=== PATIENT | male | born 1955 | race Caucasian/White ===

== ENCOUNTER → 2018-01-02 06:47 | Outpatient (CLI) | payer OTHER, SELFPAY ==
[2018-01-02 08:38] LABS: Absolute Lymphocyte Count 1.15 X10^3/ul (0.83-4.51); Basophil# 0.02 X10^3/uL; Basophil% 0.4 % (0-1); Eosinophil# 0.23 X10^3/uL; Eosinophils% 4.6 % (0-5); Hematocrit 48.5 % (40-54); Hemoglobin 16.5 g/dl (13.0-16.5); Lymphocyte # 1.15 X10^3/ul (4.0); Mean Corpuscular Hgb 32.7 pg (27.0-32.0); Mean Platelet Vol. 11.5 fl (6.2-12.0); Monocyte# 0.59 X10^3/uL; Monocyte% 11.8 % (0-10); Neutrophil # 2.98 X10^3/uL (2.7-7.7); Neutrophil % 59.4 % (47-70); POSITIVE COUNT NO; POSITIVE DIFFERENTIAL NO; POSITIVE MORPHOLOGY NO; Platelet Count 139 K/mm3 (150-450); RBC Distribution Width CV 12.6 % (11.6-14.6); RBC Distribution Width SD 43.8 fl (35.1-43.9); Red Blood Count 5.05 M/mm3 (4.6-6.2)
[2018-01-02 09:27] LABS: ALB/GLOB Ratio 1.1 RATIO (0.9-2.4); AST(SGOT) 22 U/L (15-37); Alanine Aminotransfer ALT/SGPT 33 U/L (16-61); Albumin, Serum 3.8 g/dL (3.2-5.0); Alkaline Phosphatase 89 U/L (45-117); Anion Gap 8 (5-15); BUN 25 mg/dL (7-18); BUN/Creat Ratio 22.7 RATIO (10-20); Calcium,Total 8.2 mg/dL (8.5-10.1); Chloride 106 mmol/L (98-107); Cholesterol 223 mg/dL (200); EST Glomerular Filtration Rate 72 mL/min (>60); Est Glom Filt Rate - Afr Amer 87 mL/min (>60); Globulin 3.4 g/dL (2.2-4.2); Glucose 77 mg/dL (74-106); High Density Lipoprotein 63 mg/dL; PSA,Total - Annual Screen 3.32 ng/mL (0.00-4.00); Potassium 3.6 mmol/L (3.5-5.1); Protein, Total 7.2 g/dL (6.4-8.2); Sodium Level 141 mmol/L (136-145); T4 Free Direct 1.12 ng/dL (0.76-1.46); Thyroid Stim Hormone (TSH) 1.71 uIU/mL (0.358-3.74); Triglycerides 62 mg/dL; Very Low Density Lipoprotein 12 mg/dL (5-40)
== END ==
PROVIDERS: Family Provider Family Medicine; PCP Family Medicine; Visit Provider Family Medicine
DX: Z00.00 Encounter for general adult medical examination without abnormal findings (principal); Z12.5 Encounter for screening for malignant neoplasm of prostate; I10 Essential (primary) hypertension; E03.9 Hypothyroidism, unspecified
CPT/HCPCS: 36415; 80053; 80061; 84153; 84439; 84443; 85025; G0103

== ENCOUNTER → 2018-01-14 15:57 | Outpatient (CLI) | payer OTHER, SELFPAY ==
--- NOTE | 2018-01-14 16:01 | US_ITS ---
STUDY: THYROID ULTRASOUND REASON FOR EXAM: Male, 62 years old. Right thyroid nodule. Patient with thyroid medication. TECHNIQUE: Ultrasound evaluation of the thyroid was performed with real-time and static whelan-scale imaging. COMPARISON: None. FINDINGS: RIGHT LOBE: The right lobe of the thyroid gland measures 4.4 x 1.1 x 0.8 cm. There is a homogeneous echotexture. There are no demonstrated solid, cystic or complex lesions. LEFT LOBE: The left lobe of the thyroid gland measures 3.0 x 1.2 x 0.9 cm. There is a homogeneous echotexture. There are no demonstrated solid, cystic or complex lesions. ISTHMUS: The isthmus measures 2 mm . The regional lymph nodes are normal. US/Thyroid IMPRESSION: Mildly enlarged right lobe of the thyroid gland. No nodule identified. Electronically Signed: Santiago Ayala MD at 0:29 EDT , Service support ,
== END ==
PROVIDERS: Family Provider Family Medicine; PCP Family Medicine; Visit Provider Family Medicine
DX: E04.1 Nontoxic single thyroid nodule (principal)
CPT/HCPCS: 76536

== ENCOUNTER → 2019-04-15 06:48 | Outpatient (CLI) | payer MEDICARE, SELFPAY ==
[2013-11-09 09:39] VITALS: BMI 21.6
[2019-04-15 07:40] LABS: Absolute Neutrophil Count 3.8 X10^3/uL (2.0-7.7); Basophil# 0.05 X10^3/uL; Basophil% 0.9 % (0-1); Eosinophil# 0.14 X10^3/uL; Eosinophils% 2.5 % (0-5); Hemoglobin 16.4 g/dL (13.0-16.5); Lymphocyte % 17.7 % (19-41); Mean Corp Hgb Conc 34.2 g/dL (32-36); Mean Corpuscular Hgb 32.9 pg (27.0-32.0); Mean Corpuscular Volume 96.4 fL (80-94); Monocyte# 0.66 X10^3/uL; Monocyte% 11.7 % (0-10); NRBC Flagged by Analyzer 0 % (0-5); Neutrophil # 3.75 X10^3/uL (2.7-7.7); Neutrophil % 66.5 % (47-70); Platelet Count 139 K/mm3 (150-450); RBC Distribution Width SD 42.1 fl (35.1-43.9); Red Blood Count 4.98 M/mm3 (4.6-6.2); White Blood Count 5.6 K/mm3 (4.4-11.0)
[2019-04-15 08:15] LABS: ALB/GLOB Ratio 1.1 RATIO (0.9-2.4); AST(SGOT) 22 U/L (15-37); Alanine Aminotransfer ALT/SGPT 33 U/L (16-61); Albumin, Serum 3.7 g/dL (3.2-5.0); Alkaline Phosphatase 84 U/L (45-117); Anion Gap 5 (5-15); BUN 17 mg/dL (7-18); BUN/Creat Ratio 14.9 RATIO (10-20); Calcium,Total 8.4 mg/dL (8.5-10.1); Chloride 108 mmol/L (98-107); Cholesterol 216 mg/dL (200); Creatinine, Serum 1.14 mg/dL (0.70-1.30); EST Glomerular Filtration Rate 68 mL/min (>60); Est Glom Filt Rate - Afr Amer 83 mL/min (>60); Globulin 3.3 g/dL (2.2-4.2); Glucose 85 mg/dL (74-106); High Density Lipoprotein 64 mg/dL; PSA,Total - Annual Screen 4.52 ng/mL (0.00-4.00); Potassium 3.9 mmol/L (3.5-5.1); Sodium Level 142 mmol/L (136-145); T4 Free Direct 1.21 ng/dL (0.76-1.46); Thyroid Stim Hormone (TSH) 2.12 uIU/mL (0.358-3.74); Triglycerides 63 mg/dL; Very Low Density Lipoprotein 13 mg/dL (5-40)
== END ==
PROVIDERS: Family Provider Family Medicine; PCP Family Medicine; Referring Provider Family Medicine; Visit Provider Family Medicine
DX: Z00.00 Encounter for general adult medical examination without abnormal findings (principal); Z12.5 Encounter for screening for malignant neoplasm of prostate; I10 Essential (primary) hypertension; Z51.81 Encounter for therapeutic drug level monitoring
CPT/HCPCS: 36415; 80053; 80061; 84153; 84439; 84443; 85025; G0103

== ENCOUNTER → 2019-11-11 08:24 | Outpatient (CLI) | payer MEDICARE, MEDICAID, SELFPAY ==
[2013-11-09 09:39] VITALS: BMI 21.6
[2019-11-11 09:49] LABS: PSA,Total- Diagnostic 3.38 ng/mL (0.0-4.0)
== END ==
PROVIDERS: Family Provider Family Medicine; PCP Family Medicine; Referring Provider Family Medicine; Visit Provider Family Medicine
DX: R97.20 Elevated prostate specific antigen [PSA] (principal)
CPT/HCPCS: 36415; 84153

== ENCOUNTER 2021-09-05 12:54 | Outpatient (CLI) | payer MEDICARE, MEDICAID, SELFPAY ==
[2021-09-05 13:17] VITALS: BP 163/103; PULSE 102; RESP 20; TEMP 38.8; O2SAT 96; BMI 24.7
[2021-09-05] MEDS: 0.9% Saline Lock 10 ML Syringe IV (13:23)
[2021-09-05] MEDS: Acetaminophen 325 MG Tablet 650 MG PO (13:23)
[2021-09-05 13:54] VITALS: BP 130/89; PULSE 89; RESP 16; TEMP 37.6; O2SAT 96
[2021-09-05 14:52] VITALS: BP 129/86; PULSE 80; RESP 16; TEMP 37.4; O2SAT 97
== END 2021-09-05 23:59 | disposition home or self-care (01) ==
LOC: MS3OUT 12:55 → MS3 12:55
PROVIDERS: PCP Family Medicine; Referring Provider Nurse Practitioner Adult Health; Visit Provider Nurse Practitioner Adult Health
DX: Z23 Encounter for immunization (principal); U07.1 COVID-19
CPT/HCPCS: J7050; M0245; Q0245; A4216

== ENCOUNTER 2021-10-27 16:21 | Inpatient (IN) | payer MEDICARE, MEDICAID, SELFPAY ==
[2021-10-27] VITALS (18 sets, daily range): BP systolic 118–158; BP diastolic 71–89; PULSE 51–83; RESP 12–19; TEMP 35.9–36.8; O2SAT 96–100; BMI 26.3; BMI 25.6
--- NOTE | 2021-10-27 16:37 | CT_ITS ---
STUDY: CT BRAIN WITHOUT CONTRAST REASON FOR EXAM: Male, 66 years old. Head trauma and loc RADIATION DOSAGE (If Supplied By Facility): CTDIvol = ( 44.99 ) mGy, DLP = ( 829.85 ) mGycm TECHNIQUE: Transaxial CT imaging of the brain was performed without administration of intravenous contrast material. Individualized dose optimization techniques were used for this CT. COMPARISON: 01/13/2012 FINDINGS: Normal soft tissue structures. Normal calvarium. Normal size ventricles and extra-axial spaces for the patient''s age. Normal white matter tracts of the cerebral hemispheres. Normal basal ganglia and thalami. Normal brainstem. Normal cerebellum. There is no intracranial hemorrhage. There are no findings of an acute ischemic infarction. Normal visualized paranasal sinuses. CT/Brain/Head without Contrast IMPRESSION: Normal unenhanced CT scan of the brain. Electronically Signed: Cosmo Rose DO at 17:52 EST ,
--- NOTE | 2021-10-27 16:37 | EKG12_ITS ---
Test Reason : SYNCOPE Blood Pressure : / mmHG Vent. Rate : 050 BPM Atrial Rate : 050 BPM P-R Int : 158 ms QRS Dur : 112 ms QT Int : 452 ms P-R-T Axes : 067 051 051 degrees QTc Int : 412 ms Sinus bradycardia Otherwise normal ECG Confirmed by RA YOUNG, SHEN ([id number]), video news editor KARTHIK LINDSEY ([id number]) on 10/29/2021 10:44:43 AM Referred By: DEACON/SANG Confirmed By:SHEN KNAPP MD
--- NOTE | 2021-10-27 16:39 | EX.ED.DYSGE1 ---
HPI History of Present Illness Chief Complaint: Syncope Informant: patient Onset/Context/Timing Onset: Today Context: Sudden Onset Timing: Intermittent Current Severity: Mild Maximum Severity: Moderate Narrative Narrative: 66-year-old male history of hypothyroidism and hypertension. No cardiac history. Patient was at home today was feeling well he walked in the bedroom and passed out. says urine hit the floor 1 in and she noticed he was not breathing a bit his tongue. She still no seizure activity. He was able to wake him up he started breathing. She said he has had episodes like this before but not this severe this long. After he was awake and alert she said he was confused. His heart rate was around 49 when they checked it. And he had a second very brief syncopal episode while sitting there. No chest pain. No headache. When he fell he did hit his head is complaining contusion of back of his head. Denies any neck pain. No other injuries. He has had syncope years ago in extensive work-up at that time they could not find anything. Prior similar symptoms: Yes Recent Illness/Hospitalization: No PFSH PFS Medical History Hypertension Hypothyroidism Syncope and collapse Home Medications levothyroxine 75 mcg PO DAILY 11/09/13 [History Last Taken Unknown] lisinopril 5 mg PO DAILY 11/09/13 [History Last Taken Unknown] Allergy/AdvReac Type Severity Reaction Status Date / Time Penicillins Allergy Severe Rash Verified 09/05/21 10:59 Sulfa (Sulfonamide Allergy Rash Verified 09/05/21 10:59 Antibiotics) Social History Smoking Status: Never smoker ROS ROS ED ROS Narrative Denies recent illness. Review of Systems ROS Unobtainable: Denies due to encephalopathy Constitutional Constitutional ED: Denies fever(s) Eyes Eyes: Denies change in vision ENT ENT ED: Denies ear pain Cardiovascular Cardiovascular: Denies chest pain Respiratory/Chest Respiratory/Chest: Denies dyspnea Gastrointestinal Gastrointestinal: Denies abdominal pain or nausea Genitourinary Genitourinary ED: Denies dysuria Musculoskeletal Musculoskeletal: Denies myalgias Integumentary Denies rash Neurologic Neurologic: Denies headache(s) Psychiatric Psychiatric: Denies depression Endocrine Endocrinology: Denies polyuria Allergic/Immunologic Allergic/Immunologic ED: Denies mouth swelling, tongue swelling or urticaria EXAM Physical Exam Narrative Exam Narrative: 66-year-old male no acute distress. Vital signs stable pressure 158/81 with heart rate 51. Looks like a sinus bradycardia on the monitor. Pulse is 9 9% on room air no signs hypoxia. H EENT exam is a small quarter size contusion posterior scalp. No laceration or blood. Pupils round reactive light. He also has a small bruise bite deniz on front right tip of his tongue. No bleeding. No laceration. C-spine nontender. Trachea midline. Lungs clear to auscultation. Heart bradycardic rate of 55 no murmur. Chest wall nontender. Ribs nontender. Abdomen soft nontender. Back and spine nontender. Moving all 4 extremities. Equal symmetrical police communications operator strength. Dorsi plantarflexion intact. Neurologically is awake. He is alert. He is answering questions. He follows commands. He has no focal motor deficits. He is little confused after being post ictal. He cannot name the day of the week or the month. He does know the year and president. Const Vital Signs: 10/27/21 16:23 10/27/21 16:28 10/27/21 16:30 Temperature 96.7 F L 96.7 F L Temperature Source Temporal Temporal Pulse Rate 51 L 51 L Respiratory Rate 16 16 Respiratory Pattern Normal Blood Pressure 158/81 H 158/81 H Blood Pressure Mean 106 106 Pulse Ox 99 99 Oxygen Delivery Method Room Air Room Air 10/27/21 16:43 Temperature Temperature Source Pulse Rate Respiratory Rate Respiratory Pattern Blood Pressure Blood Pressure Mean Pulse Ox Oxygen Delivery Method Room Air Positive well nourished and well developed; Negative for obese, cachectic, contractures or unkempt General Appearance ED: well developed and NAD; Negative for unkempt, cachectic, contractures, cyanotic, diaphoretic or pallor Nutritional Appearance: Negative for cachectic or obese HEENT Reports moist mucous membranes HEENT Narrative: Small bite deniz right front anterior tongue. trauma and tenderness Eyes PERRL and EOMs intact bilaterally Neck no lymphadenopathy, supple and no JVD General: Negative for tenderness Chest Wall inspection of chest normal and palpation of chest normal Resp normal respiratory effort and clear to auscultation bilaterally Effort and Inspection: Negative for pain with movement Auscultation: Negative for rales, rhonchi or wheezes Cardio regular rhythm, S1 normal heart sound, S2 normal heart sound and no murmurs; Negative for regular rate Rate: bradycardia GI normal to inspection, nondistended, normoactive bowel sounds, non-tender, non-distended and no masses Inspection: Negative for abdominal distention Auscultation: normoactive bowel sounds Palpation: soft; Negative for tender, guarding or rebound tenderness present Back/Spine no CVA tenderness General Back: Negative for CVA tenderness Cervical Spine: Negative for cervical spine tenderness Thoracic Spine / Upper Back: Negative for thoracic spinal tenderness or paraspinal muscle tenderness Lumbar Spine / Lower Back: Negative for lumbar spinal tenderness Extremity normal to inspection General Extremety ED: Negative for edema or tenderness General Extremity: Negative for edema Neuro oriented x3 and CN's II-XII intact bilaterally Sensorium / Orientation: alert; Negative for orientation impaired, lethargic or stuporous Motor Exam: strength 5/5 throughout Psych mental status grossly normal Appearance: Negative for unkempt Attitude: No agitated Mood & Affect: Negative for depressed, anxious or tearful Skin no rashes or lesions noted and no wounds General Skin Exam: Negative for jaundice or pallor MDM MDM MDM Narrative Medical decision making narrative: 66-year-old male with a syncopal episode. He does have a sinus bradycardia at this time. He is confused after the event. There is a possibility this was a seizure since he is confused postevent. I was called to the room around 5:10 by his nurse.. Patient had an unresponsive episode he became bradycardic in the 20s and then had asystole for very brief period of time. As I did a sternal rub he started regaining his heart rate and woke up. Lab Data Attestation: I reviewed the patient's lab results. Lab results narrative: CBC shows a white count 13.6. H&H is 16 and 46. Platelets of 158. Electrolytes unremarkable gap of 5 BUN of 19 creatinine 1.1. Glucose 168. Troponin V. Chest x-ray unremarkable. Labs: Laboratory Results - last 24 hr 10/27/21 10/27/21 16:38 16:38 WBC 13.6 H RBC 4.78 Hgb 16.3 Hct 46.3 MCV 96.9 H MCH 34.1 H MCHC 35.2 RDW Std Deviation 44.1 H RDW Coeff of Pia 12.3 Plt Count 158 MPV 10.5 Immature Gran % (Auto) 1.000 H Neut % (Auto) 90.8 H Lymph % (Auto) 3.7 L [place] % (Auto) 4.0 Eos % (Auto) 0.1 Baso % (Auto) 0.4 Absolute Neuts (auto) 12.4 H Absolute Lymphs (auto) 0.51 L Nucleated RBC % 0 Platelet Estimate ADEQUATE RBC Morphology NORM C+C Sodium 139 Potassium 4.3 Chloride 105 Carbon Dioxide 29.0 Anion Gap 5 BUN 19 H Creatinine 1.19 Estim Creat Clear Calc 59.41 Est GFR (MDRD) Af Amer 78 Est GFR (MDRD) Non-Af 65 BUN/Creatinine Ratio 16.0 Glucose 168 H Calcium 9.0 Troponin I High Sens 5 Radiography Chest X-Ray - ED: 1 View, 2 View, Read by ED Physician, Heart, Lungs, Mediastinum, Bony Structures, No Acute Disease and Chronic Changes Diagnostic Testing: Clinical Impression(s) from Imaging Studies Chest X-Ray 10/27/21 16:40 IMPRESSION: Normal x-ray examination of the chest. Electronically Signed: Cosmo Rose DO at 17:06 EST Reading Location ID and State: [address] [place] [address] Tel [phone], Service support , Chest x-ray, portable, single view interpreted myself and radiologist shows no acute abnormality. Rhythm Strip Rhythm Strip: Sinus bradycardia Rate: 50 Ectopy: None EKG Initial EKG: Attestation: I personally reviewed and interpreted this EKG as follows: Interpretation: No Acute Injury Pattern and Sinus Bradycardia Comments: Sinus bradycardia rate of 50 no acute signs of [place] nor ischemia. Unchanged from prior EKG from 2013. Prior EKG tracings: available for review Prior: Unchanged Discharge Plan Triage Chief Complaint: Syncope ED Provider: Arsh Tripathi Dx/Rx/DC Orders Clinical Impression: Syncope and collapse, Bradycardia, sinus, Asystole Prescriptions: No Action levothyroxine 75 MCG tablet 75 mcg PO DAILY RF: 0 lisinopril 10 MG tablet 5 mg PO DAILY RF: 0 Primary Care Provider: Deniz Fatima Referrals: Deniz Fatima DO [Primary Care Provider] -
--- NOTE | 2021-10-27 16:40 | RAD_ITS ---
STUDY: X-RAY CHEST REASON FOR EXAM: Male, 66 years old. Chest pain TECHNIQUE: Frontal view COMPARISON: 01/14/2012. FINDINGS: The lungs are clear and expanded. There is no demonstrated pleural abnormality. Normal size heart. Normal mediastinum and teo. Normal visualized pulmonary arteries. Normal visualized aortic arch and descending thoracic aorta. Normal visualized thoracic spine. Normal visualized ribs, clavicles, and shoulders. There is no demonstrated abnormality of the visualized soft tissue structures of the upper abdomen. RAD/Chest 1 View (Portable) IMPRESSION: Normal x-ray examination of the chest. Electronically Signed: Cosmo Rose DO at 17:06 EST ,
[2021-10-27 16:52] LABS: Absolute Lymphocyte Count 0.51 X10^3/uL (0.83-4.51); Absolute Neutrophil Count 12.4 X10^3/uL (2.0-7.7); Basophil# 0.06 X10^3/uL; Basophil% 0.4 % (0-1); Eosinophil# 0.01 X10^3/uL; Eosinophils% 0.1 % (0-5); Hematocrit 46.3 % (40-54); Hemoglobin 16.3 g/dL (13.0-16.5); Lymphocyte # 0.51 X10^3/ul (0.83-4.51); Lymphocyte % 3.7 % (19-41); Mean Corp Hgb Conc 35.2 g/dL (32-36); Mean Corpuscular Hgb 34.1 pg (27.0-32.0); Mean Corpuscular Volume 96.9 fL (80-94); Mean Platelet Vol. 10.5 fl (6.2-12.0); Monocyte# 0.55 X10^3/uL; NRBC Flagged by Analyzer 0 % (0-5); Neutrophil # 12.36 X10^3/uL (2.7-7.7); Neutrophil % 90.8 % (47-70); POSITIVE DIFFERENTIAL YES; Platelet Count 158 K/mm3 (150-450); RBC Distribution Width CV 12.3 % (11.6-14.6); RBC Distribution Width SD 44.1 fl (35.1-43.9); Red Blood Count 4.78 M/mm3 (4.6-6.2); White Blood Count 13.6 K/mm3 (4.4-11.0)
[2021-10-27 16:58] LABS: Differential Indicated SCAN CRITERIA MET
[2021-10-27 17:15] LABS: Anion Gap 5 (5-15); BUN 19 mg/dL (7-18); Chloride 105 mmol/L (98-107); Creatinine, Serum 1.19 mg/dL (0.70-1.30); EST Glomerular Filtration Rate 65 mL/min (>60); Est Glom Filt Rate - Afr Amer 78 mL/min (>60); Estimated Creatinine Clearance 59.41 ml/min; Glucose 168 mg/dL (74-106); Potassium 4.3 mmol/L (3.5-5.1); Sodium Level 139 mmol/L (136-145); Troponin-I HS 5 pg/mL (3.0-78.0)
--- NOTE | 2021-10-27 17:16 | ED.RN ---
Pt noted to be bradycardic on the monitor, HR 28 and then long pause, RN to bedside, pt unreponsive, Dr Tripathi to bedside. Pt arousing, Atropine not given as heart rate increased to 60's. Pt moved to ER2. Pacer pads placed.
[2021-10-27 17:20] LABS: Platelet Estimate ADEQUATE (ADEQ); Red Cell Morphology NORM C+C NORMAL (NORM C&C)
--- NOTE | 2021-10-27 17:49 | NURSING ---
DR VISHNU DOMÍNGUEZ
--- NOTE | 2021-10-27 17:59 | PCM.HP.STD ---
HPI - General General Date of Admission: 10/27/21 Date of Service: 10/27/21 Chief Complaint: Recurrent syncope - 1 day HPI Narrative ODALIS LAY, is a 66 M who presents with the above syncopal episode. History was taken from the patient. He has a remote history of recurrent syncope; last known syncope was in 2014. This was worked up extensively including stress test and Holter monitor without any findings. Patient's stated he subsequently became unresponsive, lasted for a few seconds, and then he woke up. This recurred again. Also in the ED, patient is reported to have become unresponsive again, and had asystole for some minutes. He awoke when he was sternal rubbed. Record of this appears to be lost from telemetry as he was switched from the rooms. He denied any current cardiac conditions. No new medications. He is just on lisinopril and Synthroid. He is fairly active. No recent history of leg swelling, weight gain, orthopnea, PND, palpitations, dizziness. Vitals in the ED are stable. EKG shows no acute ST-T changes. Admitting blood work is unremarkable. Chest x-ray shows no acute cardiopulmonary abnormality. Brain CT is also unremarkable. [facility] Medical History Hypertension Hypothyroidism Syncope and collapse Home Medications levothyroxine 75 mcg PO DAILY 11/09/13 [History Last Taken Unknown] lisinopril 5 mg PO DAILY 11/09/13 [History Last Taken Unknown] Allergy/AdvReac Type Severity Reaction Status Date / Time Penicillins Allergy Severe Rash Verified 09/05/21 10:59 Sulfa (Sulfonamide Allergy Rash Verified 09/05/21 10:59 Antibiotics) Family History (Updated 10/27/21 @ 18:[address] Yamilex Lilly MD) Father CAD (coronary artery disease) Mother CAD (coronary artery disease) Surgical History (Updated 10/27/21 @ 18:[address] Yamilex Lilly MD) S/P herniorrhaphy Social History (Updated 10/27/21 @ 18:[address] Yamilex Lilly MD) household members: spouse current occupational status: retired Smoking Status: Never smoker alcohol intake: never ROS ROS Narrative Constitutional: Denies: Anorexia, Chills, Fever, Night Sweats, Weight Change Eyes: Denies: Blurred vision, Cataracts, Conjunctivae Inflammation, Pain, Redness, Vision Change HEENT: Denies: Difficulty Hearing, Difficulty Swallowing, Head Aches, Hearing Changes, Sinus Congestion, Sinus Drainage Cardiovascular: See HPI Respiratory: Denies: Cough, Shortness of breath at rest, Sputum production Gastrointestinal: Denies: Abdominal Pain, Nausea, Vomiting Genitourinary: Denies: Dysuria Musculoskeletal: Denies: Joint Pain, Joint stiffness, Joint swelling, Joint Tenderness Skin: Denies: Rash, Wounds Neurological: Denies: Numbness, Tingling, Focal weakness Vital Signs Vital Signs Vital Signs: 10/27/21 16:23 10/27/21 16:28 10/27/21 16:30 Temperature 96.7 F L 96.7 F L Temperature Source Temporal Temporal Pulse Rate 51 L 51 L Respiratory Rate 16 16 Respiratory Pattern Normal Blood Pressure 158/81 H 158/81 H Blood Pressure Mean 106 106 Pulse Ox 99 99 Oxygen Delivery Method Room Air Room Air 10/27/21 16:43 Temperature Temperature Source Pulse Rate Respiratory Rate Respiratory Pattern Blood Pressure Blood Pressure Mean Pulse Ox Oxygen Delivery Method Room Air Weight Weight: 80.8 kg Body Mass Index (BMI) 26.3 Physical Exam Narrative Physical exam: General: Alert, Oriented x3, Cooperative, No apparent distress, Well developed HEENT: Atraumatic Oral: Moist Mucosa Neck: Supple Lungs: Clear to auscultation Cardiovascular: HS I+II, regular, no murmurs, pacer pads in place Abdomen: Bowel Sounds Present, Soft, Non Tender Extremities: No edema Results Lab / Micro Data Result Diagrams: 10/27/21 16:38 10/27/21 16:38 Labs: Laboratory Results - last 24 hr 10/27/21 16:38: WBC 13.6 H, RBC 4.78, Hgb 16.3, Hct 46.3, MCV 96.9 H, MCH 34.1 H, MCHC 35.2, RDW Std Deviation 44.1 H, RDW Coeff of Pia 12.3, Plt Count 158, MPV 10.5, Immature Gran % (Auto) 1.000 H, Neut % (Auto) 90.8 H, Lymph % (Auto) 3.7 L, [place] % (Auto) 4.0, Eos % (Auto) 0.1, Baso % (Auto) 0.4, Absolute Neuts (auto) 12.4 H, Absolute Lymphs (auto) 0.51 L, Nucleated RBC % 0, Platelet Estimate ADEQUATE, RBC Morphology NORM C+C 10/27/21 16:38: Sodium 139, Potassium 4.3, Chloride 105, Carbon Dioxide 29.0, Anion Gap 5, BUN 19 H, Creatinine 1.19, Estim Creat Clear Calc 59.41, Est GFR (MDRD) Af Amer 78, Est GFR (MDRD) Non-Af 65, BUN/Creatinine Ratio 16.0, Glucose 168 H, Calcium 9.0, Troponin I High Sens 5 Rhythm Strip Rhythm Strip: Sinus bradycardia Rate: 50 Ectopy: None Radiology Impression Brain CT 10/27/21 16:37 IMPRESSION: Normal unenhanced CT scan of the brain. Electronically Signed: Cosmo Rose DO at 17:52 EST , Chest X-Ray 10/27/21 16:40 IMPRESSION: Normal x-ray examination of the chest. Electronically Signed: Cosmo Rose DO at 17:06 EST , Assessment & Plan Assessment/Plan (1) Asystole: (2) Bradycardia, sinus: (3) Syncope and collapse: PLAN: 1. Recurrent syncope likely secondary to possible sick sinus syndrome Patient with documented episode of asystole EKG shows sinus bradycardia Admit to ICU, continue with transcutaneous pacing, check TSH Cardiology consulted from the ED 2. Hypothyroidism, continue Synthroid 3. Hypertension, controlled, continue on lisinopril 4. DVT prophylaxis?Lovenox subcu 5. I discussed and explained in details the various types of CODE STATUS-full code, DNR CCA, DNR CC. Patient chose DNR-CCA, no intubation. He does not want aggressive cardiopulmonary resuscitation in the event of a cardiopulmonary arrest. His is his healthcare power of contracts attorney. I did explain that he will have transcutaneous pacing for which he understands. Time spent discussing CODE STATUS 16 minutes Charges/Coding Visit Charges Inpatient E&M: 57856 Init Hosp L3
--- NOTE | 2021-10-27 18:10 | NURSING ---
ICU 4 [facility] BRADYCARDIA, SYNCOPE, ASYSTOLE
[2021-10-27 19:00] LABS: Troponin-I HS 6 pg/mL (3.0-78.0)
[2021-10-27 22:56] LABS: Troponin-I HS 9 pg/mL (3.0-78.0)
--- NOTE | 2021-10-27 23:11 | CON.PCM.CA_ITS ---
Assessment & Plan Assessment/Plan (1) Syncope and collapse: PLAN: He presents with episode of syncope and noted to be asystolic on the telemetry monitoring. Unfortunately do not have a copy of the above. The etiology of above is unclear but it appears to be secondary to likely sick sinus syndrome. I would recommend telemetry monitoring overnight Echocardiogram to assess ventricular function If no significant other findings are noted he may be a candidate for permanent pacemaker implantation. I have discussed this with him the risk benefits alternatives he understands and agrees to proceed. HPI Consult Data Date of Consult: 10/27/21 HPI Narrative HPI Narrative: ODALIS LAY, is a 66 M who presents to the emergency room with a syncopal episode. He says that he first had an episode like this approximately 6 years ago and was evaluated and had his medications changed and then he did fine. Today he had an episode which was unbeknownst to him that he passed out. He apparently hit his head. After he came to he had another episode. He was brought to the emergency room he was noted to be bradycardic. While in the emergency room he had a bradycardic episode which was unprovoked associated with a sinus pause. Sternal rub revived him and he was brought to the intensive care unit. His blood pressure appears to be stable at this time. He did contract COVID-19 in August of this year and received a monoclonal antibody. He has had no previous cardiac issues other than mild high blood pressure. [facility] Medical History Hypertension Hypothyroidism Syncope and collapse Home Medications levothyroxine 75 mcg PO DAILY 11/09/13 [History Last Taken Unknown] lisinopril 5 mg PO DAILY 11/09/13 [History Last Taken Unknown] Allergy/AdvReac Type Severity Reaction Status Date / Time Penicillins Allergy Severe Rash Verified 09/05/21 10:59 Sulfa (Sulfonamide Allergy Rash Verified 09/05/21 10:59 Antibiotics) Family History Father CAD (coronary artery disease) Mother CAD (coronary artery disease) Surgical History S/P herniorrhaphy Social History household members: spouse current occupational status: retired Smoking Status: Never smoker alcohol intake: never ROS Constitutional Constitutional: Denies fever(s) or weight loss Eyes Eyes: Reports systems reviewed and no addt'l complaints, except as documented ENT HEENT: Reports systems reviewed and no addt'l complaints, except as documented Cardiovascular Cardiovascular: Denies chest pain at rest, chest pain with activity, dyspnea at rest, dyspnea on exertion, edema, palpitations or paroxysmal nocturnal dyspnea Respiratory/Chest Respiratory/Chest: Denies dyspnea on exertion, productive cough, shortness of breath at rest or shortness of breath with exertion Gastrointestinal Gastrointestinal: Denies change in bowel habits, nausea, vomiting or weight changes Genitourinary Genitourinary: Denies difficulty urinating Musculoskeletal Musculoskeletal: Denies joint stiffness or muscle weakness Integumentary Integumentary: Denies lesions Neurologic Neurologic: Denies dizziness or syncope Psychiatric Psychiatric: Denies anxiety Endocrine Endocrinology: Denies excessive sweating or fatigue Hematologic/Lymphatic Hematologic/Lymphatic: Denies anemia Allergic/Immunologic Allergic/Immunologic: Denies seasonal rhinorrhea Physical Exam Const alert, oriented x3 and no apparent distress General Appearance: cooperative HEENT hearing grossly normal bilaterally Head and Scalp: atraumatic Eyes EOMs intact bilaterally Neck General: normal visual inspection Chest inspection of chest normal and palpation of chest normal Resp normal respiratory effort Auscultation: clear to auscultation bilaterally Cardio regular rate, regular rhythm, S1 normal heart sound and S2 normal heart sound Jugular Venous Distention: JVD GI normal to inspection, nondistended, normoactive bowel sounds Extremity normal capillary refill and no pedal edema Peripheral Pulses: Yes pulses 2+ throughout and femoral pulses present Skin no rashes or lesions noted Neuro oriented x3 and CN's II-XII intact bilaterally Psych Appearance: grossly normal and appropriate Risk Stratification Risk Stratification Applicable: No Objective Data Vital Signs: Vital Signs Temp Pulse Resp BP Pulse Ox 97.8 F 63 14 143/86 H 100 10/27/21 18:33 10/27/21 18:46 10/27/21 18:46 10/27/21 18:46 10/27/21 19:10 Oxygen Flow Rate (L/min) 2 Oxygen Delivery Method Nasal Cannula Weight: 173 lb 11.588 oz Body Mass Index (BMI) 25.6 Intake & Output: Intake and Output for Last 24 Hours 10/25/21 10/26/21 10/27/21 23:59 23:59 23:59 Output Total 125 / 125 Balance -125 / -125 Lab / Micro Data Result Diagrams: 10/27/21 16:38 10/27/21 16:38 Labs: Laboratory Results - last 24 hr 10/27/21 16:38: WBC 13.6 H, RBC 4.78, Hgb 16.3, Hct 46.3, MCV 96.9 H, MCH 34.1 H , MCHC 35.2, RDW Std Deviation 44.1 H, RDW Coeff of Pia 12.3, Plt Count 158, MPV 10.5, Immature Gran % (Auto) 1.000 H, Neut % (Auto) 90.8 H, Lymph % (Auto) 3.7 L , [place] % (Auto) 4.0, Eos % (Auto) 0.1, Baso % (Auto) 0.4, Absolute Neuts (auto) 12.4 H, Absolute Lymphs (auto) 0.51 L, Nucleated RBC % 0, Platelet Estimate ADEQUATE, RBC Morphology NORM C+C 10/27/21 16:38: Sodium 139, Potassium 4.3, Chloride 105, Carbon Dioxide 29.0, Anion Gap 5, BUN 19 H, Creatinine 1.19, Estim Creat Clear Calc 59.41, Est GFR (MDRD) Af Amer 78, Est GFR (MDRD) Non-Af 65, BUN/Creatinine Ratio 16.0, Glucose 168 H, Calcium 9.0, Troponin I High Sens 5 10/27/21 18:35: Troponin I High Sens 6 10/27/21 22:26: Troponin I High Sens 9 Rhythm Strip Rhythm Strip: Sinus bradycardia Rate: 50 Ectopy: None Cardiology Labs/Tests 10/27/21 16:38: WBC 13.6 H, RBC 4.78, Hgb 16.3, Hct 46.3, MCV 96.9 H, MCH 34.1 H , MCHC 35.2, Plt Count 158, MPV 10.5, Immature Gran % (Auto) 1.000 H, Neut % (Auto) 90.8 H, Lymph % (Auto) 3.7 L, [place] % (Auto) 4.0, Eos % (Auto) 0.1, Baso % (Auto) 0.4, Absolute Neuts (auto) 12.4 H, Nucleated RBC % 0 10/27/21 16:38: Sodium 139, Potassium 4.3, Chloride 105, Carbon Dioxide 29.0, Anion Gap 5, BUN 19 H, Creatinine 1.19, Est GFR (MDRD) Af Amer 78, Est GFR (MDRD) Non-Af 65, BUN/Creatinine Ratio 16.0, Glucose 168 H, Calcium 9.0 Rhythm: EKG: ECHO: Stress Test: Cardiac Cath: PCI: CT Surgery: Holter monitor: EPS: PPM: CXR: Chest CT Scan: Radiography Diagnostic Testing: Radiology Impression Brain CT 10/27/21 16:37 IMPRESSION: Normal unenhanced CT scan of the brain. Electronically Signed: Cosmo Rose DO at 17:52 EST , Chest X-Ray 10/27/21 16:40 IMPRESSION: Normal x-ray examination of the chest. Electronically Signed: Cosmo Rose DO at 17:06 EST ,
[2021-10-28] VITALS (28 sets, daily range): BP systolic 108–157; BP diastolic 68–98; PULSE 63–92; RESP 12–20; TEMP 36.2–37.3; O2SAT 95–99
[2021-10-28 04:23] LABS: Absolute Lymphocyte Count 0.45 X10^3/uL (0.83-4.51); Absolute Neutrophil Count 9.1 X10^3/uL (2.0-7.7); Basophil# 0.02 X10^3/uL; Basophil% 0.2 % (0-1); Hemoglobin 14.6 g/dL (13.0-16.5); Lymphocyte # 0.45 X10^3/ul (0.83-4.51); Lymphocyte % 4.4 % (19-41); Mean Corp Hgb Conc 34.8 g/dL (32-36); Mean Corpuscular Hgb 33.6 pg (27.0-32.0); Mean Corpuscular Volume 96.6 fL (80-94); Mean Platelet Vol. 10.7 fl (6.2-12.0); Monocyte# 0.68 X10^3/uL; Monocyte% 6.6 % (0-10); NRBC Flagged by Analyzer 0 % (0-5); Neutrophil # 9.09 X10^3/uL (2.7-7.7); Neutrophil % 87.9 % (47-70); POSITIVE DIFFERENTIAL YES; Platelet Count 153 K/mm3 (150-450); RBC Distribution Width CV 12.3 % (11.6-14.6); RBC Distribution Width SD 44.1 fl (35.1-43.9); Red Blood Count 4.35 M/mm3 (4.6-6.2); White Blood Count 10.3 K/mm3 (4.4-11.0)
[2021-10-28 04:24] LABS: Differential Indicated SCAN CRITERIA MET
[2021-10-28 04:44] LABS: ALB/GLOB Ratio 1.1 RATIO (0.9-2.4); AST(SGOT) 30 U/L (15-37); Alanine Aminotransfer ALT/SGPT 63 U/L (16-61); Albumin, Serum 3.2 g/dL (3.2-5.0); Alkaline Phosphatase 88 U/L (45-117); Anion Gap 6 (5-15); BUN 18 mg/dL (7-18); BUN/Creat Ratio 20.8 RATIO (10-20); Chloride 108 mmol/L (98-107); Creatinine, Serum 0.86 mg/dL (0.70-1.30); EST Glomerular Filtration Rate 93 mL/min (>60); Est Glom Filt Rate - Afr Amer 113 mL/min (>60); Estimated Creatinine Clearance 82.21 ml/min; Glucose 108 mg/dL (74-106); Protein, Total 6.2 g/dL (6.4-8.2); Sodium Level 139 mmol/L (136-145)
[2021-10-28] MEDS: Levothyroxine 75 MCG Tablet PO (06:37)
--- NOTE | 2021-10-28 07:57 | PCM.PN.HOSP ---
Subjective Subjective Follow-up on recurrent syncope: Patient was seen and examined. He had an episode of asystole again last night. He woke up spontaneously when his name was yelled out. It was unclear if he lost a pulse or not. There was no need for CPR. Patient is reported To have stated that he was sleeping. This morning he complains of feeling fatigued. Denied any dizziness or palpitation. He remains in normal sinus rhythm. Objective Data Objective Data Vital Signs: Vital Signs Temp Pulse Resp BP Pulse Ox 98.4 F 72 16 137/79 H 97 10/28/21 04:00 10/28/21 07:27 10/28/21 07:00 10/28/21 07:00 10/28/21 07:00 Oxygen Flow Rate (L/min) 1 Oxygen Delivery Method Room Air Weight: 79 kg Body Mass Index (BMI) 25.6 Intake & Output: Intake and Output for Last 24 Hours 10/26/21 10/27/21 10/28/21 23:59 23:59 23:59 Output Total 250 / 250 100 / 100 Balance -250 / -250 -100 / -100 Lab / Micro Data Result Diagrams: 10/28/21 04:13 10/28/21 04:13 Labs: Laboratory Results - last 24 hr 10/27/21 16:38: WBC 13.6 H, RBC 4.78, Hgb 16.3, Hct 46.3, MCV 96.9 H, MCH 34.1 H, MCHC 35.2, RDW Std Deviation 44.1 H, RDW Coeff of Pia 12.3, Plt Count 158, MPV 10.5, Immature Gran % (Auto) 1.000 H, Neut % (Auto) 90.8 H, Lymph % (Auto) 3.7 L, [place] % (Auto) 4.0, Eos % (Auto) 0.1, Baso % (Auto) 0.4, Absolute Neuts (auto) 12.4 H, Absolute Lymphs (auto) 0.51 L, Nucleated RBC % 0, Platelet Estimate ADEQUATE, RBC Morphology NORM C+C 10/27/21 16:38: Sodium 139, Potassium 4.3, Chloride 105, Carbon Dioxide 29.0, Anion Gap 5, BUN 19 H, Creatinine 1.19, Estim Creat Clear Calc 59.41, Est GFR (MDRD) Af Amer 78, Est GFR (MDRD) Non-Af 65, BUN/Creatinine Ratio 16.0, Glucose 168 H, Calcium 9.0, Troponin I High Sens 5 10/27/21 18:35: Troponin I High Sens 6 10/27/21 22:26: Troponin I High Sens 9 10/28/21 04:13: WBC 10.3, RBC 4.35 L, Hgb 14.6, Hct 42.0, MCV 96.6 H, MCH 33.6 H, MCHC 34.8, RDW Std Deviation 44.1 H, RDW Coeff of Pia 12.3, Plt Count 153, MPV 10.7, Immature Gran % (Auto) 0.900, Neut % (Auto) 87.9 H, Lymph % (Auto) 4.4 L, [place] % (Auto) 6.6, Eos % (Auto) 0.0, Baso % (Auto) 0.2, Absolute Neuts (auto) 9.1 H, Absolute Lymphs (auto) 0.45 L, Nucleated RBC % 0 10/28/21 04:13: Sodium 139, Potassium 4.0, Chloride 108 H, Carbon Dioxide 25.0, Anion Gap 6, BUN 18, Creatinine 0.86, Estim Creat Clear Calc 82.21, Est GFR (MDRD) Af Amer 113, Est GFR (MDRD) Non-Af 93, BUN/Creatinine Ratio 20.8 H, Glucose 108 H, Calcium 8.0 L, Total Bilirubin 0.80, AST 30, ALT 63 H, Alkaline Phosphatase 88, Total Protein 6.2 L, Albumin 3.2, Globulin 3.0, Albumin/Globulin Ratio 1.1 Radiography Diagnostic Testing: Radiology Impression Brain CT 10/27/21 16:37 IMPRESSION: Normal unenhanced CT scan of the brain. Electronically Signed: Cosmo Rose DO at 17:52 EST , Chest X-Ray 10/27/21 16:40 IMPRESSION: Normal x-ray examination of the chest. Electronically Signed: Cosmo Rose DO at 17:06 EST , Rhythm Strip Rhythm Strip: Sinus bradycardia Rate: 50 Ectopy: None Physical Exam Narrative Physical exam: General: Alert, Oriented x3, Cooperative, No apparent distress, Well developed HEENT: Atraumatic Oral: Moist Mucosa Neck: Supple Lungs: Clear to auscultation Cardiovascular: HS I+II, regular, no murmurs, pacer pads in place Abdomen: Bowel Sounds Present, Soft, Non Tender Extremities: No edema Assessment & Plan Assessment/Plan (1) Asystole: (2) Bradycardia, sinus: (3) Syncope and collapse: PLAN: 1. Recurrent syncope likely secondary to possible sick sinus syndrome Patient with witnessed and documented episode of asystole EKG shows NSR. TSH is normal. Continue with transcutaneous pacing Cardiology following; plan is for pacemaker tomorrow 2. Hypothyroidism, continue Synthroid 3. Hypertension, controlled, continue on lisinopril 4. DVT prophylaxis?Lovenox subcu 5. Code status - DNR-CCA, no intubation Charges/Coding Visit Charges Inpatient E&M: 38851 Subs Hosp L3
--- NOTE | 2021-10-28 09:48 | PN.CARD_ITS ---
Subjective Subjective Patient seen and valuated. Doing well this morning. Had an asystolic pause in the night Objective Data Vital Signs: Vital Signs Temp Pulse Resp BP Pulse Ox 97.9 F 86 19 H 150/89 H 98 10/28/21 08:00 10/28/21 09:00 10/28/21 09:00 10/28/21 09:00 10/28/21 09:00 Oxygen Flow Rate (L/min) 1 Oxygen Delivery Method Room Air Weight: 174 lb 2.643 oz Body Mass Index (BMI) 25.6 Intake & Output: Intake and Output for Last 24 Hours 10/26/21 10/27/21 10/28/21 23:59 23:59 23:59 Output Total 250 / 250 100 / 100 Balance -250 / -250 -100 / -100 Lab / Micro Data Result Diagrams: 10/28/21 04:13 10/28/21 04:13 Labs: Laboratory Results - last 24 hr 10/27/21 16:38: WBC 13.6 H, RBC 4.78, Hgb 16.3, Hct 46.3, MCV 96.9 H, MCH 34.1 H , MCHC 35.2, RDW Std Deviation 44.1 H, RDW Coeff of Pia 12.3, Plt Count 158, MPV 10.5, Immature Gran % (Auto) 1.000 H, Neut % (Auto) 90.8 H, Lymph % (Auto) 3.7 L , [place] % (Auto) 4.0, Eos % (Auto) 0.1, Baso % (Auto) 0.4, Absolute Neuts (auto) 12.4 H, Absolute Lymphs (auto) 0.51 L, Nucleated RBC % 0, Platelet Estimate ADEQUATE, RBC Morphology NORM C+C 10/27/21 16:38: Sodium 139, Potassium 4.3, Chloride 105, Carbon Dioxide 29.0, Anion Gap 5, BUN 19 H, Creatinine 1.19, Estim Creat Clear Calc 59.41, Est GFR (MDRD) Af Amer 78, Est GFR (MDRD) Non-Af 65, BUN/Creatinine Ratio 16.0, Glucose 168 H, Calcium 9.0, Troponin I High Sens 5 10/27/21 18:35: Troponin I High Sens 6 10/27/21 22:26: Troponin I High Sens 9 10/28/21 04:13: WBC 10.3, RBC 4.35 L, Hgb 14.6, Hct 42.0, MCV 96.6 H, MCH 33.6 H , MCHC 34.8, RDW Std Deviation 44.1 H, RDW Coeff of Pia 12.3, Plt Count 153, MPV 10.7, Immature Gran % (Auto) 0.900, Neut % (Auto) 87.9 H, Lymph % (Auto) 4.4 L, [place] % (Auto) 6.6, Eos % (Auto) 0.0, Baso % (Auto) 0.2, Absolute Neuts (auto) 9.1 H, Absolute Lymphs (auto) 0.45 L, Nucleated RBC % 0 10/28/21 04:13: Sodium 139, Potassium 4.0, Chloride 108 H, Carbon Dioxide 25.0, Anion Gap 6, BUN 18, Creatinine 0.86, Estim Creat Clear Calc 82.21, Est GFR (MDRD) Af Amer 113, Est GFR (MDRD) Non-Af 93, BUN/Creatinine Ratio 20.8 H, Glucose 108 H, Calcium 8.0 L, Total Bilirubin 0.80, AST 30, ALT 63 H, Alkaline Phosphatase 88, Total Protein 6.2 L, Albumin 3.2, Globulin 3.0, Albumin/Globulin Ratio 1.1 Rhythm Strip Rhythm Strip: Sinus bradycardia Rate: 50 Ectopy: None Cardiology Labs/Tests 10/27/21 16:38: WBC 13.6 H, RBC 4.78, Hgb 16.3, Hct 46.3, MCV 96.9 H, MCH 34.1 H , MCHC 35.2, Plt Count 158, MPV 10.5, Immature Gran % (Auto) 1.000 H, Neut % (Auto) 90.8 H, Lymph % (Auto) 3.7 L, [place] % (Auto) 4.0, Eos % (Auto) 0.1, Baso % (Auto) 0.4, Absolute Neuts (auto) 12.4 H, Nucleated RBC % 0 10/27/21 16:38: Sodium 139, Potassium 4.3, Chloride 105, Carbon Dioxide 29.0, Anion Gap 5, BUN 19 H, Creatinine 1.19, Est GFR (MDRD) Af Amer 78, Est GFR (MDRD) Non-Af 65, BUN/Creatinine Ratio 16.0, Glucose 168 H, Calcium 9.0 10/28/21 04:13: WBC 10.3, RBC 4.35 L, Hgb 14.6, Hct 42.0, MCV 96.6 H, MCH 33.6 H , MCHC 34.8, Plt Count 153, MPV 10.7, Immature Gran % (Auto) 0.900, Neut % (Auto) 87.9 H, Lymph % (Auto) 4.4 L, [place] % (Auto) 6.6, Eos % (Auto) 0.0, Baso % (Auto) 0.2, Absolute Neuts (auto) 9.1 H, Nucleated RBC % 0 10/28/21 04:13: Sodium 139, Potassium 4.0, Chloride 108 H, Carbon Dioxide 25.0, Anion Gap 6, BUN 18, Creatinine 0.86, Est GFR (MDRD) Af Amer 113, Est GFR (MDRD) Non-Af 93, BUN/Creatinine Ratio 20.8 H, Glucose 108 H, Calcium 8.0 L, Total Bilirubin 0.80 Rhythm: EKG: ECHO: Stress Test: Cardiac Cath: PCI: CT Surgery: Holter monitor: EPS: PPM: CXR: Chest CT Scan: Radiography Diagnostic Testing: Radiology Impression Brain CT 10/27/21 16:37 IMPRESSION: Normal unenhanced CT scan of the brain. Electronically Signed: Cosmo Rose DO at 17:52 EST , Chest X-Ray 10/27/21 16:40 IMPRESSION: Normal x-ray examination of the chest. Electronically Signed: Cosmo oRse DO at 17:06 EST , Physical Exam Const alert, oriented x3 and no apparent distress General Appearance: cooperative HEENT hearing grossly normal bilaterally Head and Scalp: atraumatic Eyes EOMs intact bilaterally Neck General: normal visual inspection Chest inspection of chest normal and palpation of chest normal Resp normal respiratory effort Auscultation: clear to auscultation bilaterally Cardio regular rate, regular rhythm, S1 normal heart sound and S2 normal heart sound Jugular Venous Distention: JVD GI normal to inspection, nondistended, normoactive bowel sounds Extremity normal capillary refill and no pedal edema Peripheral Pulses: Yes pulses 2+ throughout and femoral pulses present Skin no rashes or lesions noted Neuro oriented x3 and CN's II-XII intact bilaterally Psych Appearance: grossly normal and appropriate Assessment & Plan Assessment/Plan (1) Syncope and collapse: PLAN: He presents with episode of syncope and noted to be asystolic on the telemetry monitoring. Was noted to be over 20 seconds. The etiology of above is unclear but it appears to be secondary to likely sick sinus syndrome. Though the above may be secondary to increased vagal tone I think that based on the duration he is a candidate for permanent pacemaker implantation. I have discussed this with him and his they understand and agree to proceed. We will schedule for a.m. Thank you for allowing me to participate in the care of your patient. Please don't hesitate to call if any issues arise.
--- NOTE | 2021-10-28 13:16 | ECHOL_ITS ---
Reason For Study: Abn EKG Procedure This was a limited 2D transthoracic echocardiogram. Exam performed portable in ICU/CCU. Left Ventricle Normal LV size. Mild concentric left ventricular hypertrophy. Left ventricular systolic function is normal. The estimated ejection fraction is 55 %. No regional wall motion abnormalities noted. Right Ventricle Normal RV size. Normal systolic function. Mitral Valve Normal mitral valve. Tricuspid Valve Normal tricuspid valve. Mild (1+) tricuspid valve insufficiency. Pulmonary artery systolic pressure is 30 mmHg. Aortic Valve Trisinus/trileaflet aortic valve. Great Vessels Normal aortic root. Pericardium/Pleural No pericardial effusion. MMode/2D Measurements & Calculations LVIDd: 4.6 cm IVSd: 1.2 cm LVAd ap4: 26.2 cm2 LVIDs: 3.1 cm LVPWd: 1.2 cm LVLd ap4: 8.0 cm RVDd: 3.6 cm FS: 32.9 % EDV(MOD-sp4): 70.8 ml EDV(sp4-el): 72.5 ml LVAs ap4: 13.8 cm2 LVLs ap4: 6.6 cm ESV(MOD-sp4): 24.7 ml ESV(sp4-el): 24.4 ml EF(MOD-sp4): 65.2 % EF(sp4-el): 66.3 % SV(MOD-sp4): 46.1 ml SV(sp4-el): 48.1 ml Doppler Measurements & Calculations Ao V2 max: 154.0 cm/sec TR max keisha: 255.1 cm/sec Ao max P.5 mmHg TR max P.0 mmHg Ao V2 mean: 98.6 cm/sec Ao mean P.5 mmHg Ao V2 VTI: 28.4 cm ECHO/Echo, Limited Study Interpretation Summary Normal LV size. Left ventricular systolic function is normal. The estimated ejection fraction is 55 %. Mild concentric left ventricular hypertrophy. Pulmonary artery systolic pressure is 30 mmHg. Ordering Physician: Chris Valentin Referring Physician: Darrel Fatima Performed By: Alondra Batista, ROSAENN, RVT
[2021-10-28] MEDS: 0.9% Normal Saline 1,000 ML 100 ML IV ×2 (13:18→23:19)
--- NOTE | 2021-10-28 15:48 | CL.IE_ITS ---
Patient: ODALIS LAY Study Date: 10/28/2021 Performing: Chris Valentin MD : 1955 Age: 66 Gender: male PROCEDURES PERFORMED LP04-([id number])INITIAL PACER INSERT+DUAL LEADS INDICATIONS Syncope Sinoatrial node dysfunction/Sick sinus syndrome PROCEDURE DETAILS The patient was brought to the Catheterization Lab in the postabsorptive nonsedated state. Infor med consent was obtained prior to the procedure. Local anesthetic was given subcutaneously to the le ft upper chest area with Lidocaine 2%. Incision was made to the left subclavicular area. Access was a chieved and a guidewire was advanced into the left subclavian vein. PPM ventricular lead was inserted / positioned to right ventricular apex. PPM ventricular lead testing performed. PPM ventricular lead testing performed. PPM atrial lead was inserted / positioned to the right atrial appendage. PPM atri al lead testing performed. The Atrial lead sutured in place with 2-0 Silk. The Ventricular PM lead hernandez tured in place with 2-0 Silk. Device pocket was irrigated with antibiotic Bacitracin. PPM generator w as attached to the lead(s) and inserted into the pocket. PPM generator was then interrogated by the dorita real. Subcutaneous closure was completed with 3-0 Vicryl. Skin closure was completed with 4-0 Vicryl. Steri-strips applied to Lt chest area. The patient tolerated the procedure well. Estimated Blood Loss: 10 ml's IMPLANTED / EX-PLANTED DEVICES IMPLANTED DEVICE(S): PPM Ventricular lead - Medical Associate: CN [employer], Model # [id number] 7842 , Serial # [id number] PPM Atrial lead - Medical Associate: CN [employer], Model # Ingevity 7841 , Serial # [id number] PPM Generator - Medical Associate: CN [employer], Model # [employer] GA DYER L111 , Serial # [id number] DEVICE PARAMETERS ATRIAL LEAD PARAMETERS: P wave- 7.1 (mV) Current- 1.1 (mA) threshold- 0.8 (V) impedence- 787 (OHMS) VENTRICULAR LEAD PARAMETERS: R wave- 25.0 (mV) Current- 0.7 (mA) threshold- 0.7 (V) impedence- 1022 (OHMS) DEVICE PARAMETERS: Mode- DDD Lower rate- 50 Upper rate- 130 CONCLUSIONS / RECOMMENDATIONS Device Conclusions: Successful implantation of a dual chamber pacemaker Device Recommendations: Follow up with Primary Care Physician PROCEDURE MEDICATIONS Fentanyl 50 mcg IV Versed 1 mg IV Versed 1 mg IV Versed 1 mg IV Fentanyl 25 mcg IV Fentanyl 25 mcg IV Oxygen: 2 L/min via nasal cannula Antibiotic given in appropriate timeframe. Clindamycin 900 mg IV 10/28/2021 14:39:59 Signed By Chris Valentin MD On 10/28/2021 15:47:05 Chris Valentin MD
[2021-10-29] VITALS (7 sets, daily range): BP systolic 152–162; BP diastolic 88–105; PULSE 64–77; RESP 16; TEMP 36.4–37; O2SAT 95–97
[2021-10-29] MEDS: Acetaminophen 325 MG Tablet 650 MG PO ×2 (00:43→09:28)
[2021-10-29] MEDS: Levothyroxine 75 MCG Tablet PO (05:00)
--- NOTE | 2021-10-29 05:55 | RAD_ITS ---
EXAM: XR CHEST, 3 VIEWS : 1955 CLINICAL INDICATION: Post permanant ICD/Pacemaker -- inspiration/expiration. Arms Down. Wet read to MD TECHNIQUE: Inspiratory and expiratory as well as lateral view of the chest. This report was created using [employer] report generation technology. COMPARISON: 10/27/21 FINDINGS: LUNGS AND PLEURAL SPACES: Bibasilar atelectasis. No pneumothorax. No effusion. HEART: Unremarkable. Cardiac silhouette not enlarged. MEDIASTINUM: Central airways and mediastinal contour are unremarkable. BONES/JOINTS: Unremarkable. SOFT TISSUES: Unremarkable. TUBES, LINES AND DEVICES: Left chest pacer with leads in the right atrium and right ventricle. RAD/Chest 3 View IMPRESSION: Left chest pacer with leads in the right atrium and right ventricle. No pneumothorax. at 0628 Reported and signed by: Spike Au MD Electronically Signed: Spike Au MD at 6:27 EST ,
--- NOTE | 2021-10-29 09:19 | PN.CARD_ITS ---
Subjective Subjective Patient seen and evaluated. Doing well. Status post pacemaker implantation. Objective Data Vital Signs: Vital Signs Temp Pulse Resp BP Pulse Ox 97.9 F 64 16 154/105 H 96 10/29/21 04:37 10/29/21 06:59 10/29/21 04:37 10/29/21 04:37 10/29/21 07:14 Oxygen Flow Rate (L/min) 1 Oxygen Delivery Method Room Air Weight: 172 lb 13.478 oz Body Mass Index (BMI) 25.6 Intake & Output: Intake and Output for Last 24 Hours 10/27/21 10/28/21 10/29/21 23:59 23:59 23:59 Intake Total 1590 / 1590 300 / 300 Output Total 250 / 250 1050 / 1050 600 / 600 Balance -250 / -250 540 / 540 -300 / -300 Lab / Micro Data Result Diagrams: 10/28/21 04:13 10/28/21 04:13 Rhythm Strip Rhythm Strip: Sinus bradycardia Rate: 50 Ectopy: None Cardiology Labs/Tests Rhythm: EKG: ECHO: Stress Test: Cardiac Cath: PCI: CT Surgery: Holter monitor: EPS: PPM: CXR: Chest CT Scan: Radiography Diagnostic Testing: Radiology Impression Echocardiogram 10/28/21 13:16 Interpretation Summary Normal LV size. Left ventricular systolic function is normal. The estimated ejection fraction is 55 %. Mild concentric left ventricular hypertrophy. Pulmonary artery systolic pressure is 30 mmHg. Ordering Physician: Chris Valentin Referring Physician: Darrel Fatima Performed By: Alondra Batista, ROSEANN, RVT Chest X-Ray 10/29/21 05:55 IMPRESSION: Left chest pacer with leads in the right atrium and right ventricle. No pneumothorax. at 0628 Reported and signed by: Spike Au MD Electronically Signed: Spike Au MD at 6:27 EST , Physical Exam Const alert, oriented x3 and no apparent distress General Appearance: cooperative HEENT hearing grossly normal bilaterally Head and Scalp: atraumatic Eyes EOMs intact bilaterally Neck General: normal visual inspection Chest inspection of chest normal and palpation of chest normal Resp normal respiratory effort Auscultation: clear to auscultation bilaterally Cardio regular rate, regular rhythm, S1 normal heart sound and S2 normal heart sound Jugular Venous Distention: JVD GI normal to inspection, nondistended, normoactive bowel sounds Extremity normal capillary refill and no pedal edema Peripheral Pulses: Yes pulses 2+ throughout and femoral pulses present Skin no rashes or lesions noted Neuro oriented x3 and CN's II-XII intact bilaterally Psych Appearance: grossly normal and appropriate Assessment & Plan Assessment/Plan (1) Syncope and collapse: PLAN: He presents with episode of syncope and noted to be asystolic on the telemetry monitoring. Was noted to be over 20 seconds. Patient underwent dual-chamber pacemaker implantation. Pacemaker interrogation today demonstrates normal pacemaker function chest x-ray unremarkable. Patient will be discharged for outpatient follow-up.
--- NOTE | 2021-10-29 09:20 | DCINST_ITS ---
Discharge Instructions Diet Discharge Diet: No restrictions (as you feel able. No excessive stretching. No lifting your arm over your head (keep elbow below shoulder level) until seen for your pacemaker check. Do not lift your elbow away from your side until you are seen for your first visit. Keep the arm sling on if it helps remind you not to lift your arm.) Activity Discharge Activity: May Not Drive May shower in (days): 3 Dressing / Incision Call your doctor if your incision/area has: Continuous Slow Oozing, Sudden Increased Bleeding, Increased Pain/ Swelling, Increased Redness, Foul Smelling D ischarge and Swelling at the incision site Call your doctor if you observe: Fever of 101 or Higher, Shortness of breath, Dizziness, Fainting spells, Swelling in the ankles, Chest pain, Prolonged hiccupping and Increased palpitations (irregular heartbeat) Additional Dressing/Incision Instructions:: When dressing is removed, wash and dry incision. Keep covered with a light bandage if it is rubbing against your clothing. Do not cover the incision with an airtight bandage. Change the bandage daily. Do not remove steri strips. The strips will fall off on their own. Follow Up Care Please Follow Up With: Chris Valentin MD When: Follow-up in the [facility]acer clinic on November 06 at 9 AM. Test Results: Test results from this visit will be discussed in further detail at your follow-up appointment, if applicable. Discharge Plan Admission Admit Date/Time: 10/27/21 17:53 Attending Provider: Wale Winston Primary Care Provider: Darrel Fatima Consulting Providers: Chris Valentin Discharge Orders/Prescriptions Prescriptions: No Action levothyroxine 75 MCG tablet 75 mcg PO DAILY RF: 0 lisinopril 10 MG tablet 5 mg PO DAILY RF: 0 Referrals / Follow Up: Darrel Fatima DO [Primary Care Provider] -
--- NOTE | 2021-10-29 10:08 | PCM.DC ---
Discharge Instructions Diet Discharge Diet: No restrictions (as you feel able. No excessive stretching. No lifting your arm over your head (keep elbow below shoulder level) until seen for your pacemaker check. Do not lift your elbow away from your side until you are seen for your first visit. Keep the arm sling on if it helps remind you not to lift your arm.) Activity Discharge Activity: Return to Normal Activity and May Not Drive May shower in (days): 3 Dressing / Incision Call your doctor if your incision/area has: Continuous Slow Oozing, Sudden Increased Bleeding, Increased Pain/ Swelling, Increased Redness, Foul Smelling Discharge and Swelling at the incision site Call your doctor if you observe: Fever of 101 or Higher, Coldness, Increased Pain, Numbness or Tingling, Change in Color, Inability to urinate, Inability to have a bowel movement, Shortness of breath, Dizziness, Fainting spells, Swelling in the ankles, Chest pain, Prolonged hiccupping, Increased palpitations (irregular heartbeat) and Calf discomfort Additional Dressing/Incision Instructions:: When dressing is removed, wash and dry incision. Keep covered with a light bandage if it is rubbing against your clothing. Do not cover the incision with an airtight bandage. Change the bandage daily. Do not remove steri strips. The strips will fall off on their own. Follow Up Care Please Follow Up With: Chris Valentin MD Test Results: Test results from this visit will be discussed in further detail at your follow-up appointment, if applicable. Discharge Plan Admission Admit Date/Time: 10/27/21 17:53 Primary Reason for Your Visit: syncope due to bradycardia Attending Provider: Wale Winston Primary Care Provider: Darrel Fatima Consulting Providers: Chris Valentin Discharge Orders/Prescriptions Prescriptions: Continued levothyroxine 75 MCG tablet 75 mcg PO DAILY RF: 0 Changed lisinopril 10 MG tablet 10 mg PO DAILY Qty: 0 RF: 0 Referrals / Follow Up: Chris Valentin MD [STAFF PHYSICIAN] - Within 1 Month (Syncope due to Severe bradycardia, status post pacemaker) Darrel Fatima DO [Primary Care Provider] - Disposition Disposition (needs filled in before D/C Order can be placed): Home, Self Care
--- NOTE | 2021-10-29 10:11 | DS.PCM_ITS ---
Providers Date of Admission: 10/27/21 Date of Discharge: 10/29/21 Primary Care Physician: Dr. Darrel Fatima, Consultations 10/27/21 18:26 Consult: Cardiology Routine Consulting Provider: Chris Valentin Reason for Consult: Recurrent syncope EMERGENT Consult: No MD Notified: Yes Date Notified: 10/27/21 Time Notified: 17:59 Method of Notification: Verbal Method of Consult:: In-Person Reason For Visit: RECURRENT SYNCOPE Diagnosis Discharge Diagnosis (1) Syncope and collapse: Status: Acute Code(s): R55 - Syncope and collapse Medications at Discharge Home Medications levothyroxine 75 mcg PO DAILY 11/09/13 lisinopril 10 mg PO DAILY #0 tab 10/29/21 Hospital Course Summary of Care Provided Hospital Course: This 66-year-old gentleman was admitted with syncope, unresponsive episode lasted for few seconds when he woke up without any memory of it.. Patient has remote history of recurrent syncope last syncope was in 2014. Patient had extensive work-up including stress test Holter monitor which did not show any remarkable abnormal finding. Patient was admitted on telemetry. 1. Syncope and collapse: Patient was admitted in PCU. On telemetry found to be asystolic for over 20 seconds. Patient had dual-chamber pacemaker. Pacemaker integration shows normal pacemaker function. Chest x-ray unremarkable. Patient had 2D echo reported EF 66%, LV systolic function normal. Mild concentric LVH. Serial troponin enzymes negative. 2. Hypothyroidism, continue Synthroid 3. Hypertension, blood pressure slightly elevated. Lisinopril dose increased to 10 mg daily. 4. DVT prophylaxis?Lovenox subcu 5. Astigmatism and early cataract changes: Patient had right extremities diplopia probably due to these 2 reasons. Advised follow-up in [facility]. Does not have other symptoms regarding a stroke. Patient was examined in presence of nurse. Code status - DNR-CCA, no intubation Discharge medication reconciliation done. Discharge follow-up instructions completed. Discharge process discussed with the patient and all questions were answered to patient's satisfaction. Total time spent, exact 35 minutes on discharge meds reconciliation, examination, coordination of care with nurses and ancillary staff, review of imaging and blood test and discussion with the patient on follow-up instructions. Physical Exam Narrative Seen and examined. Does not have chest pain shortness of breath. lunchroom monitor shows sinus rhythm. Patient had left subclavicular bichamber pacemaker. Left upper extremity swath and sling. Patient also complaining of diplopia on looking extreme right gaze. Patient has history of astigmatism and was also told that she has early changes of cataract. Advised to see [facility] after discharging 1 week. Patient does not have any other focal symptoms of weakness, dysarthria, language deficit, loss of vision/blurry vision or change of sensation. Physical exam General: Alert, Oriented x3, Cooperative HEENT: Atraumatic, PERRLA, EOMI, Normocephalic Oral: No Gingival or Mucosal Lesions/ Ulcerations Neck: Supple, No JVD, Negative Carotid Bruits Lungs: Air entry diminished in bilateral lung bases. No crepitation/rhonchi Cardiovascular: Regular rate, Regular Rhythm, Normal S1, Normal S2, No murmurs Abdomen: Bowel Sounds Present, Soft, Non Tender, Non-Distended : No renal angle tenderness. No suprapubic tenderness. Extremities: No edema, Capillary Refill Less than 3 Seconds Skin: No rashes, No breakdown Musculoskeletal: No Tenderness to Palpation of Joints or Extremities Neurological: Cranial nerves II-XII grossly intact, DTR 2+/4 and Symmetrical, Neuro grossly intact Psych/Mental Status: Normal Affect, Appropriate Weight / BMI Weight Weight: 172 lb 13.478 oz Body Mass Index (BMI) 25.6 ABG / Lab / Microbiology Data Result Diagrams: 10/28/21 04:13 10/28/21 04:13 Radiography Diagnostic Testing: Radiology Impression Echocardiogram 10/28/21 13:16 Interpretation Summary Normal LV size. Left ventricular systolic function is normal. The estimated ejection fraction is 55 %. Mild concentric left ventricular hypertrophy. Pulmonary artery systolic pressure is 30 mmHg. Ordering Physician: Chris Valentin Referring Physician: Darrel Fatima Performed By: Alondra Batista, RDCS, RVT Chest X-Ray 10/29/21 05:55 IMPRESSION: Left chest pacer with leads in the right atrium and right ventricle. No pneumothorax. at 0628 Reported and signed by: Spike Au MD Electronically Signed: Spike Au MD at 6:27 EST , D/C Instructions Discharge Diet: No restrictions (as you feel able. No excessive stretching. No lifting your arm over your head (keep elbow below shoulder level) until seen for your pacemaker check. Do not lift your elbow away from your side until you are seen for your first visit. Keep the arm sling on if it helps remind you not to lift your arm.) May shower in (days): 3 Call your doctor if your incision/area has: Continuous Slow Oozing, Sudden Increased Bleeding, Increased Pain/ Swelling, Increased Redness, Foul Smelling Discharge and Swelling at the incision site Call your doctor if you observe: Fever of 101 or Higher, Coldness, Increased Pain, Numbness or Tingling, Change in Color, Inability to urinate, Inability to have a bowel movement, Shortness of breath, Dizziness, Fainting spells, Swelling in the ankles, Chest pain, Prolonged hiccupping, Increased palpitations (irregular heartbeat) and Calf discomfort Additional Dressing/Incision Instructions: When dressing is removed, wash and dry incision. Keep covered with a light bandage if it is rubbing against your clothing. Do not cover the incision with an airtight bandage. Change the bandage daily. Do not remove steri strips. The strips will fall off on their own. Please Follow Up With: Chris Valentin MD When: Follow-up in the pacer clinic on November 06 at 9 AM. Meaningful Use Info Meaningful Use Diagnoses (Choose all that apply): None applicable Discharge Plan Admission Admit Date/Time: 10/27/21 17:53 Primary Reason for Your Visit: syncope due to bradycardia Attending Provider: Wale Winston Primary Care Provider: Darrel Fatima Consulting Providers: Chris Valentin Discharge Orders/Prescriptions Prescriptions: Continued levothyroxine 75 MCG tablet 75 mcg PO DAILY RF: 0 Changed lisinopril 10 MG tablet 10 mg PO DAILY Qty: 0 RF: 0 Referrals / Follow Up: Chris Valentin MD [STAFF PHYSICIAN] - 12/10/21 9:30 am (Syncope due to Severe bradycardia, status post pacemaker) Darrel Fatima DO [Primary Care Provider] - Disposition Disposition (needs filled in before D/C Order can be placed): Home, Self Care Charges/Coding Visit Charges Inpatient E&M: 24064 Disch Hosp
--- NOTE | 2021-10-29 11:00 | CASEMGMT ---
RN CM Face to Face with patient for initial transition planning/care coordination assessment. RN CM introduced self and role at [facility]. Patient sitting in chair, alert and oriented, at bedside. Patient willing to participate in assessment and is able to answer all questions appropriately. Care providers, pharmacy, and demographics verified. Patient wishes to discharge home, denies need for home health at this time. Patient states he has no further needs or concerns at this time. CM to follow for discharge planning needs that may arise. PCP: Kush[facility] Specialists: none Preferred Pharmacy: [facility] retail Insurance:[employer] Prescription Benefit: yes Living Will/HPOA: yes, Fannie Gonzales LNOK: Living Arrangements: patient lives with in a single story home with ramp or 3 steps and railing to enter the home. Patient is independent at home. Transportation: self, DME/HHC: Patient has shower, raised toilet, cane, grab bars, walker, rollator at home. Patient denies previous HHC or SNF. Disposition Plan: Patient to discharge home with family support and follow-up plans in place. Alysia PEREZ, RN, CM
== END 2021-10-29 11:51 | disposition home or self-care (01) | DRG 244 ==
LOC: ED 16:43 → ICU 18:27 → PCU 10-29 07:46 → ICU 10-30 11:57
PROVIDERS: Admitting Provider Internal Medicine; Emergency Provider Emergency Medicine; PCP Family Medicine; Visit Provider Internal Medicine
DX: I49.5 Sick sinus syndrome (principal); E03.9 Hypothyroidism, unspecified; I10 Essential (primary) hypertension; H52.201 Unspecified astigmatism, right eye; H59.021 Cataract (lens) fragments in eye following cataract surgery, right eye; R55 Syncope and collapse; Z95.0 Presence of cardiac pacemaker; Z66 Do not resuscitate; Z79.899 Other long term (current) drug therapy; Z86.16 Personal history of COVID-19; Z82.49 Family history of ischemic heart disease and other diseases of the circulatory system
CPT/HCPCS: 33208; 70450; 71045; 71047; 80048; 80053; 84484; 85025; 93005; 93308; 99152; 99153; 99285; J7030; J7050; Q9957; A4216; C1894

== ENCOUNTER → 2022-12-31 | Outpatient (CLI) | payer MEDICARE, MEDICAID, SELFPAY ==
[2022-12-31 12:38] LABS: Absolute Lymphocyte Count 1.15 X10^3/uL (0.83-4.51); Absolute Neutrophil Count 3.6 X10^3/uL (2.0-7.7); Basophil# 0.05 X10^3/uL; Basophil% 0.9 % (0-1); Eosinophils% 1.8 % (0-5); Hematocrit 51.2 % (40-54); Hemoglobin 17.1 g/dL (13.0-16.5); Lymphocyte # 1.15 X10^3/ul (0.83-4.51); Lymphocyte % 20.8 % (19-41); Mean Corp Hgb Conc 33.4 g/dL (32-36); Mean Corpuscular Hgb 32.6 pg (27.0-32.0); Mean Corpuscular Volume 97.5 fL (80-94); Mean Platelet Vol. 11.5 fl (6.2-12.0); Monocyte# 0.59 X10^3/uL; Monocyte% 10.7 % (0-10); NRBC Flagged by Analyzer 0 % (0-5); Neutrophil # 3.57 X10^3/uL (2.7-7.7); Neutrophil % 64.5 % (47-70); Platelet Count 141 K/mm3 (150-450); RBC Distribution Width CV 12.5 % (11.6-14.6); RBC Distribution Width SD 44.9 fl (35.1-43.9); Red Blood Count 5.25 M/mm3 (4.6-6.2); White Blood Count 5.5 K/mm3 (4.4-11.0)
[2022-12-31 13:18] LABS: ALB/GLOB Ratio 1.2 RATIO (0.9-2.4); AST(SGOT) 20 U/L (15-37); Alanine Aminotransfer ALT/SGPT 31 U/L (16-61); Albumin, Serum 3.8 g/dL (3.2-5.0); Alkaline Phosphatase 97 U/L (45-117); Anion Gap 5 (5-15); BUN 19 mg/dL (7-18); BUN/Creat Ratio 14.7 RATIO (10-20); Calcium,Total 9.1 mg/dL (8.5-10.1); Chloride 106 mmol/L (98-107); Cholesterol 237 mg/dL (200); Creatinine, Serum 1.29 mg/dL (0.70-1.30); EST Glomerular Filtration Rate 59 mL/min (>60); Est Glom Filt Rate - Afr Amer 71 mL/min (>60); Globulin 3.3 g/dL (2.2-4.2); Glucose 95 mg/dL (74-106); High Density Lipoprotein 57 mg/dL; PSA,Total - Annual Screen 4.47 ng/mL (0.00-4.00); Potassium 4.4 mmol/L (3.5-5.1); Protein, Total 7.1 g/dL (6.4-8.2); Sodium Level 141 mmol/L (136-145); Thyroid Stim Hormone (TSH) 1.56 uIU/mL (0.358-3.74); Triglycerides 75 mg/dL; Very Low Density Lipoprotein 15 mg/dL (5-40)
== END | disposition home or self-care (01) ==
LOC: BFHLAB 08:50
PROVIDERS: PCP Family Medicine; Referring Provider Family Medicine; Visit Provider Family Medicine
DX: I10 Essential (primary) hypertension (principal); E03.9 Hypothyroidism, unspecified; Z12.5 Encounter for screening for malignant neoplasm of prostate
CPT/HCPCS: 36415; 80053; 80061; 84153; 84443; 85025; G0103

== ENCOUNTER → 2023-01-10 | Outpatient (CLI) | payer MEDICARE, MEDICAID, SELFPAY ==
[2023-01-10 12:31] LABS: Absolute Lymphocyte Count 0.89 X10^3/uL (0.83-4.51); Absolute Neutrophil Count 4.4 X10^3/uL (2.0-7.7); Basophil# 0.03 X10^3/uL; Basophil% 0.5 % (0-1); Eosinophil# 0.09 X10^3/uL; Eosinophils% 1.5 % (0-5); Hematocrit 49.7 % (40-54); Hemoglobin 17.1 g/dL (13.0-16.5); Lymphocyte # 0.89 X10^3/ul (0.83-4.51); Lymphocyte % 14.8 % (19-41); Mean Corp Hgb Conc 34.4 g/dL (32-36); Mean Corpuscular Hgb 32.9 pg (27.0-32.0); Mean Corpuscular Volume 95.6 fL (80-94); Mean Platelet Vol. 11.4 fl (6.2-12.0); Monocyte# 0.59 X10^3/uL; Monocyte% 9.8 % (0-10); NRBC Flagged by Analyzer 0 % (0-5); Neutrophil # 4.35 X10^3/uL (2.7-7.7); Neutrophil % 72.6 % (47-70); Platelet Count 154 K/mm3 (150-450); RBC Distribution Width CV 12.2 % (11.6-14.6); RBC Distribution Width SD 43.4 fl (35.1-43.9)
[2023-01-10 12:56] LABS: Anion Gap 4 (5-15); BUN 19 mg/dL (7-18); BUN/Creat Ratio 15.6 RATIO (10-20); Calcium,Total 9.1 mg/dL (8.5-10.1); Chloride 105 mmol/L (98-107); Creatinine, Serum 1.22 mg/dL (0.70-1.30); EST Glomerular Filtration Rate 63 mL/min (>60); Est Glom Filt Rate - Afr Amer 76 mL/min (>60); Glucose 84 mg/dL (74-106); Potassium 4.4 mmol/L (3.5-5.1); Sodium Level 139 mmol/L (136-145)
== END | disposition home or self-care (01) ==
LOC: BFHLAB 11:13
PROVIDERS: PCP Family Medicine; Visit Provider Family Medicine
DX: D58.2 Other hemoglobinopathies (principal); N18.31 Chronic kidney disease, stage 3a
CPT/HCPCS: 36415; 80048; 85025

== ENCOUNTER 2023-03-04 06:53 | Day surgery (SDC) | payer MEDICARE, MEDICAID, SELFPAY ==
[2023-03-04] VITALS (7 sets, daily range): BP systolic 98–143; BP diastolic 63–91; PULSE 59–66; RESP 16; TEMP 36.1–36.3; O2SAT 96–100; BMI 25.2
--- NOTE | 2023-03-04 07:07 | PCM.HP.BLA ---
History and Physical Date of Admission: 03/04/23 Visit Reasons: COLONOSCOPY Chief Complaint: colonoscopy Is patient in pain?: No Allergies Penicillins Allergy (Severe, Verified 02/04/23 14:11) RashSulfa (Sulfonamide Antibiotics) Allergy (Verified 02/04/23 14:11) Rash Medications levothyroxine 75 mcg tablet 75 mcg PO DAILY 11/09/13 [History Confirmed 02/04/23] lisinopril 10 mg tablet 10 mg PO DAILY #90 tabs 12/26/22 [Rx Confirmed 02/04/23] ascorbic acid (vitamin C) 500 mg capsule mg PO 02/04/23 [History Confirmed 02/04/23] PFSH Medical History COVID-19 Essential hypertension Hypothyroidism Syncope and collapse Surgical History History of herniorrhaphy History of permanent cardiac pacemaker placement (10/28/21) Family History Father CAD (coronary artery disease)Mother CAD (coronary artery disease) Social History household members: spouse current occupational status: retired Smoking Status: Never smoker alcohol intake: never substance use type: does not use caffeine: Yes Type: tea HPI HPI HPI: 67-year-old gentleman is being referred by Dr. Darrel Fatima for surgical consultation regarding potential colonoscopy as the patient has a personal history of colon polyps. He has had a pacemaker placed by Dr. Chris Valentin October 28, 2021. The patient previously had a colonoscopy by myself in 2008. 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 He did not pursue a follow-up colonoscopy and then [facility] came along. He has no abdominal pain. No bright red blood per rectum or melena. He has an external skin tag that he would like to have looked at the time of the colonoscopy. He had been having syncopal spells up to 8 times per year. Finding more recently he had 4 spells in a row this stimulated a hospitalization and subsequently pacemaker placement by Dr. Chris Valentin. With this now he is stable. No family history of colon cancer. No personal history of DVT. ROS General General: No weight change, appetite, fatigue, colon cancer, breast cancer or weakness HEENT HEENT: No difficulty swallowing, eye injury, eye surgery, swollen glands or hoarseness Endo Endocrine: Yes thyroid disease; No diabetes mellitus, thyroid cancer, Hair loss, heat intolerance or cold intolerance Skin Skin: No rash or changing moles Breast Breast: No left breast lump, right breast lump, nipple discharge, breast pain, abnormal mammogram, abnormal US or breast enlargement Musc Musculoskeletal: No back problems, arthritis, rheumatoid arthritis, gout or joint pain Cardio Cardiovascular: Yes pacemaker and high blood pressure; No murmur, heart disease, atrial fibrillation, heart attack, heart stent, palpitations, shortness of breat with exertion or chest pain Psych Psychiatric: No depression, anxiety or hearing voices Resp Respiratory: No shortness of breath, No sleep apnea, No cough, No COPD, No asthma, No emphysema and No wheezing Gastro Gastrointestinal: No abdominal pain, No nausea or vomiting, No diarrhea, No constipation, No blood in stool, Yes acid reflux, No hemorrhoids, No ulcers, No gallbladder problem and No black,tarry stools William Hematologic: No blood thinners, No blood disorders, No bleeding, No anemia and No blood clots Neuro Neurologic: No system reviewed and no additional complaints, except as documented, No as per HPI, No abnormal gait, No abnormal hearing, No abnormal movements, No abnormal speech, No behavioral changes, No burning sensations, No confusion, No convulsions, No disequilibrium, No dizziness, No localized weakness, No frequent falls, No headache(s), No lack of coordination, No loss of vision, No memory loss, No numbness, No other visual disturbances, No radicular pain, No restless legs, No sensory deficit, No syncope, No tingling, No tremor(s), No weakness and No other Exam Const General: cooperative, healthy appearing, comfortable and no acute distress [facility] Head: normal to inspection Eyes General: appearance normal, both eyes and all related structures Chest Chest palpation & inspection: normal inspection of the chest Resp Effort & Inspection: normal respiratory effort Auscultation: clear to auscultation bilaterally Cardio Rate: regular rate Rhythm: regular rhythm GI Palpation: soft and no hepatosplenomegaly Musc Cervical Spine: normal cervical lordosis Skin General: no rashes or lesions noted Neuro General: patient alert, patient awake and patient oriented x3 Extrem General: no calf tenderness Psych Appearance: grossly normal Assessment and Plan Assessment and Plan (1) Personal history of colonic polyps: Status: Acute Plan: I recommended the patient a colonoscopy with possible biopsy or polypectomy as indicated. He is aware of the technique, benefit, risk, alternatives. He has had an opportunity to ask and have questions answered. We will schedule procedure at his discretion. Because of his sick sinus syndrome and pacemaker we will have monitored anesthesia care. Copy: Dr. Darrel Ferro M.D., F.A.C.S I have examined the patient and the H&P has been reviewed. There are no clinical changes since date of exam. Ori Ferro M.D., F.A.C.S.
[2023-03-04] MEDS: Lactated Ringers 1,000 ML 15 ML IV (07:31)
--- NOTE | 2023-03-04 09:17 | OP.COLON_ITS ---
Patient Name: Jose Manuel Gonzales Procedure Date: 03/04/2023 8:52 AM Date of : 1955 Age: 67 Procedure: Colonoscopy Indications: Screening for colorectal malignant neoplasm Providers: Ori Ferro MD Referring MD: Ori Ferro MD Medicines: See the Anesthesia note for documentation of the administered medications Patient Profile: Last Colonoscopy: 2008. Complications: No immediate complications. Procedure: Pre-Anesthesia Assessment: - Prior to the procedure, a History and Physical was performed, and patient medications and allergies were reviewed. The patient's tolerance of previous anesthesia was also reviewed. The risks and benefits of the procedure and the sedation options and risks were discussed with the patient. All questions were answered, and informed consent was obtained. Prior Anticoagulants: The patient has taken no previous anticoagulant or antiplatelet agents. ASA Grade Assessment: II - A patient with mild systemic disease. After reviewing the risks and benefits, the patient was deemed in satisfactory condition to undergo the procedure. After I obtained informed consent, the scope was passed under direct vision. Throughout the procedure, the patient's blood pressure, pulse, and oxygen saturations were monitored continuously. The was introduced through the anus and advanced to the cecum, identified by appendiceal orifice and ileocecal valve. The colonoscopy was performed without difficulty. The patient tolerated the procedure well. The quality of the bowel preparation was good. The ileocecal valve and the appendiceal orifice were photographed. Scope In: 9:01:38 AM Scope Withdrawal Time 0 hours 6 minutes 22 seconds Scope Out: 9:13:06 AM Total Procedure Duration Time 0 hours 11 minutes 28 seconds Findings: The digital rectal exam findings include non-thrombosed external hemorrhoids and internal hemorrhoids that do not return to the anal canal, thus continuously prolapsed (Grade IV). Pertinent negatives include normal prostate (size, shape, and consistency). Multiple diverticula were found in the sigmoid colon and descending colon. Impression: - Non-thrombosed external hemorrhoids and internal hemorrhoids that do not return to the anal canal, thus continuously prolapsed (Grade IV) found on digital rectal exam. - Diverticulosis in the sigmoid colon and in the descending colon. - No specimens collected. Recommendation: - Discharge patient to home. - Resume previous diet. - Continue present medications. - Repeat colonoscopy is not recommended due to current age (66 years or older) for screening purposes. Procedure Code(s): --- Professional --- 10649, Colonoscopy, flexible; diagnostic, including collection of specimen(s) by brushing or washing, when performed (separate procedure) Diagnosis Code(s): --- Professional --- Z12.11, Encounter for screening for malignant neoplasm of colon K64.3, Fourth degree hemorrhoids K64.4, Residual hemorrhoidal skin tags K57.30, Diverticulosis of large intestine without perforation or abscess without bleeding CPT copyright 2017 [employer]. All rights reserved. The codes documented in this report are preliminary and upon corn detasseler machine operator review may be revised to meet current compliance requirements. Ori Ferro MD 03/04/2023 9:17:38 AM This report has been signed electronically. Number of Addenda: 0 Note Initiated On: 03/04/2023 8:52 AM
--- NOTE | 2023-03-04 09:19 | OP.CCLET_ITS ---
03/04/2023 Darrel Fatima [address] [place] [address] Re : Colonoscopy procedure for Jose Manuel Gonzales Dear Dr. Fatima This procedure was performed on Saturday, March 04, 2023. My impressions and recommendations are as follows: Impressions : - Non-thrombosed external hemorrhoids and internal hemorrhoids that do not return to the anal canal, thus continuously prolapsed (Grade IV) found on digital rectal exam. - Diverticulosis in the sigmoid colon and in the descending colon. - No specimens collected. Recommendations : - Discharge patient to home. - Resume previous diet. - Continue present medications. - Repeat colonoscopy is not recommended due to current age (66 years or older) for screening purposes. My findings are described in the full procedure note, which is enclosed. If I can be of further assistance, please feel free to contact me at Doctor phone number(s): Work: . Sincerely, Ori Ferro MD 03/04/2023 9:17:38 AM This report has been signed electronically.
== END 2023-03-04 10:10 | disposition home or self-care (01) ==
LOC: EN 06:54 → AC 06:55
PROVIDERS: PCP Family Medicine; Referring Provider Family Medicine; Visit Provider Surgery
PROC: 0DJD8ZZ Inspection of Lower Intestinal Tract, Via Natural or Artificial Opening Endoscopic (ICD-10-PCS; CPT 45378; principal; 2023-03-04 07:55)
DX: Z12.11 Encounter for screening for malignant neoplasm of colon (principal); K64.3 Fourth degree hemorrhoids; K64.4 Residual hemorrhoidal skin tags; K57.30 Diverticulosis of large intestine without perforation or abscess without bleeding; I10 Essential (primary) hypertension; E03.9 Hypothyroidism, unspecified; Z95.0 Presence of cardiac pacemaker; Z79.899 Other long term (current) drug therapy; Z86.010 Personal history of colon polyps; Z86.16 Personal history of COVID-19
CPT/HCPCS: 45378; J7120

== ENCOUNTER → 2024-08-03 | Outpatient (CLI) | payer MEDICARE, MEDICAID, SELFPAY ==
[2024-08-03 15:31] LABS: Absolute Lymphocyte Count 0.73 X10^3/uL (0.83-4.51); Absolute Neutrophil Count 4.9 X10^3/uL (2.0-7.7); Basophil# 0.05 X10^3/uL; Basophil% 0.8 % (0-1); Eosinophil# 0.05 X10^3/uL; Eosinophils% 0.8 % (0-5); Hematocrit 47.4 % (40-54); Hemoglobin 16.2 g/dL (13.0-16.5); Lymphocyte # 0.73 X10^3/ul (0.83-4.51); Lymphocyte % 11.5 % (19-41); Mean Corp Hgb Conc 34.2 g/dL (32-36); Mean Corpuscular Volume 96.5 fL (80-94); Mean Platelet Vol. 11.7 fl (6.2-12.0); Monocyte# 0.57 X10^3/uL; NRBC Flagged by Analyzer 0 % (0-5); Neutrophil # 4.86 X10^3/uL (2.7-7.7); Neutrophil % 76.8 % (47-70); Platelet Count 153 K/mm3 (150-450); RBC Distribution Width CV 12.3 % (11.6-14.6); RBC Distribution Width SD 43.5 fl (35.1-43.9); Red Blood Count 4.91 M/mm3 (4.6-6.2); White Blood Count 6.3 K/mm3 (4.4-11.0)
[2024-08-03 16:02] LABS: ALB/GLOB Ratio 1.2 RATIO (0.9-2.4); AST(SGOT) 19 U/L (15-37); Alanine Aminotransfer ALT/SGPT 29 U/L (16-61); Albumin, Serum 3.8 g/dL (3.2-5.0); Alkaline Phosphatase 95 U/L (45-117); Anion Gap 5 (5-15); BUN 15 mg/dL (7-18); BUN/Creat Ratio 11.7 RATIO (10-20); Chloride 107 mmol/L (98-107); Cholesterol 213 mg/dL (200); Creatinine, Serum 1.28 mg/dL (0.70-1.30); EST Glomerular Filtration Rate 59 mL/min (>60); Est Glom Filt Rate - Afr Amer 71 mL/min (>60); Globulin 3.1 g/dL (2.2-4.2); Glucose 87 mg/dL (74-106); High Density Lipoprotein 56 mg/dL; PSA,Total - Annual Screen 4.64 ng/mL (0.00-4.00); Potassium 3.8 mmol/L (3.5-5.1); Protein, Total 6.9 g/dL (6.4-8.2); Sodium Level 140 mmol/L (136-145); Triglycerides 138 mg/dL; Very Low Density Lipoprotein 28 mg/dL (5-40)
== END | disposition home or self-care (01) ==
LOC: BFHLAB 11:17
PROVIDERS: PCP Family Medicine; Visit Provider Family Medicine
DX: I10 Essential (primary) hypertension (principal); E78.5 Hyperlipidemia, unspecified; E03.9 Hypothyroidism, unspecified; Z12.5 Encounter for screening for malignant neoplasm of prostate
CPT/HCPCS: 36415; 80053; 80061; 84153; 84443; 85025; G0103

== ENCOUNTER → 2025-08-05 | Outpatient (CLI) | payer MEDICARE, SELFPAY ==
[2025-08-05 17:38] LABS: Hematocrit 45.6 % (40-54); Hemoglobin 15.3 g/dL (13.0-16.5); Immature Granulocytes Count 0.060 X10^3/uL (0.0-0.0); Mean Corp Hgb Conc 33.6 g/dL (32-36); Mean Corpuscular Volume 95.8 fL (80-94); Mean Platelet Vol. 11.3 fl (6.2-12.0); NRBC Flagged by Analyzer 0 % (0-5); Platelet Count 189 K/mm3 (150-450); RBC Distribution Width CV 12.6 % (11.6-14.6); RBC Distribution Width SD 44.6 fl (35.1-43.9); Red Blood Count 4.76 M/mm3 (4.6-6.2); White Blood Count 6.3 K/mm3 (4.4-11.0)
[2025-08-05 18:23] LABS: AST(SGOT) 24 U/L (<=37); Alanine Aminotransfer ALT/SGPT 29 U/L (<=46); Albumin, Serum 4.3 g/dL (3.4-4.8); Alkaline Phosphatase 108 U/L (40-129); Anion Gap 13 (5-15); BUN 21 mg/dL (4-19); BUN/Creat Ratio 18.5 RATIO (10-20); Calcium,Total 9.5 mg/dL (7.6-11.0); Carbon Dioxide 24.6 mmol/L (21.0-32.0); Chloride 102 mmol/L (98-108); Cholesterol 236 mg/dL (<=200); Globulin 2.6 g/dL (2.2-4.2); Glucose 79 mg/dL (70-99); Low Density Lipoprotein Calc. 142 mg/dL; Potassium 4.5 mmol/L (3.3-5.1); Triglycerides 214 mg/dL; Very Low Density Lipoprotein 43 mg/dL (5-40); cholesterol:hdl ratio screen 4.27
[2025-08-05 18:28] LABS: PSA,Total - Annual Screen 5.95 ng/mL (0.02-4.00)
== END | disposition home or self-care (01) ==
LOC: BFHLAB 13:56
PROVIDERS: PCP Family Medicine; Visit Provider Family Medicine
DX: I10 Essential (primary) hypertension (principal); D75.1 Secondary polycythemia; E78.5 Hyperlipidemia, unspecified; E03.9 Hypothyroidism, unspecified; Z12.5 Encounter for screening for malignant neoplasm of prostate
CPT/HCPCS: 36415; 80053; 80061; 84153; 84443; 85025; G0103